=== PATIENT | female | born 1945 | race Caucasian/White ===

== ENCOUNTER 2022-04-11 08:39 | Inpatient (IN) | payer MEDICARE, BC ==
[2022-04-11 09:33] LABS: CHLORIDE,CL 101 mmol/L (98-107); SODIUM,NA 138 mmol/L (136-145)
[2022-04-11 09:38] LABS: ANION GAP 15.4 mmol/L (5-15); ESTIMATED GFR 35 mL/min (>=60)
[2022-04-11] MEDS ORDERED: Iopamidol 612 MG/ML 100 ML Bottle IVPUSH ONE (10:48)
[2022-04-11] MEDS ORDERED: Acetaminophen 325 MG Tab PO PRN ×2 (12:08→12:29)
[2022-04-11] MEDS ORDERED: Ondansetron 4 MG/2 ML SDV IV PRN ×2 (12:08→12:29)
[2022-04-11] MEDS ORDERED: Ondansetron 4 MG Tab.DIS PO PRN ×2 (12:08→12:29)
[2022-04-11] MEDS ORDERED: Rivaroxaban 10 MG Tab PO SCH ×2 (12:15→21:00)
[2022-04-11] MEDS ORDERED: Furosemide 40 MG/4 ML VIAL IV SCH (12:15)
[2022-04-11] MEDS: Furosemide 40 MG/4 ML VIAL IV SCH (13:29)
[2022-04-11] MEDS: Sodium Chloride 0.9% 10 ML Syringe FLUSH PRN ×2 (13:30→20:21)
[2022-04-11] MEDS: atorvaSTATin 40 MG Tab PO SCH (20:14)
[2022-04-11] MEDS: Apixaban 2.5 MG Tab PO SCH (21:06)
[2022-04-12] MEDS: Levothyroxine 50 MCG Tab PO SCH (06:02)
[2022-04-12] MEDS: Pantoprazole 40 MG Tab.CR PO SCH (06:02)
[2022-04-12 07:30] LABS: ANION GAP 15.1 mmol/L (5-15)
[2022-04-12] MEDS: Apixaban 2.5 MG Tab PO SCH ×2 (08:06→20:07)
[2022-04-12] MEDS: Allopurinol 100 MG Tab PO SCH (08:08)
[2022-04-12] MEDS: NIFEdipine 30 MG Tab.ER PO SCH (08:08)
[2022-04-12] MEDS: Calcium Carbonate/Vitamin D3 1250 MG-5 MCG Tab PO SCH (08:08)
[2022-04-12] MEDS: Furosemide 40 MG/4 ML VIAL IV SCH (08:09)
[2022-04-12] MEDS: Sodium Chloride 0.9% 10 ML Syringe FLUSH PRN ×2 (08:14→20:41)
[2022-04-12] MEDS ORDERED: Clopidogrel 75 MG Tab PO SCH (09:00)
[2022-04-12] MEDS ORDERED: Aspirin 81 MG Tab.Chew PO SCH (09:00)
[2022-04-12] MEDS ORDERED: [UNRECOGNIZED DRUG - REMARK] SCH (13:30)
[2022-04-12] MEDS: atorvaSTATin 40 MG Tab PO SCH (20:05)
[2022-04-13] MEDS: Levothyroxine 50 MCG Tab PO SCH (06:00)
[2022-04-13] MEDS: Pantoprazole 40 MG Tab.CR PO SCH (06:00)
[2022-04-13] MEDS: Allopurinol 100 MG Tab PO SCH (08:15)
[2022-04-13] MEDS: Apixaban 2.5 MG Tab PO SCH (08:15)
[2022-04-13] MEDS: NIFEdipine 30 MG Tab.ER PO SCH (08:15)
[2022-04-13] MEDS: Calcium Carbonate/Vitamin D3 1250 MG-5 MCG Tab PO SCH (08:15)
[2022-04-13] MEDS: Furosemide 40 MG/4 ML VIAL IV SCH (08:17)
[2022-04-13] MEDS ORDERED: Clopidogrel 75 MG Tab PO SCH (09:00)
[2022-04-18] MEDS ORDERED: Apixaban 2.5 MG Tab PO SCH (21:00)
== END 2022-04-13 17:15 | disposition home or self-care (01) | DRG 299 ==
LOC: VM.ED 08:39 → VM.MS 10:18 → OBSVTOIN 12:07
PROVIDERS: ADMIT Physician Assistant Medical; ATTEND Internal Medicine
DX: T81.718A Complication of other artery following a procedure, not elsewhere classified, initial encounter (principal); I50.23 Acute on chronic systolic (congestive) heart failure; J96.01 Acute respiratory failure with hypoxia; I26.99 Other pulmonary embolism without acute cor pulmonale; I13.0 Hypertensive heart and chronic kidney disease with heart failure and stage 1 through stage 4 chronic kidney disease, or unspecified chronic kidney disease; G47.30 Sleep apnea, unspecified; K57.90 Diverticulosis of intestine, part unspecified, without perforation or abscess without bleeding; I26.94 Multiple subsegmental thrombotic pulmonary emboli without acute cor pulmonale; N18.9 Chronic kidney disease, unspecified; G47.33 Obstructive sleep apnea (adult) (pediatric); J44.9 Chronic obstructive pulmonary disease, unspecified; I73.9 Peripheral vascular disease, unspecified; E66.9 Obesity, unspecified; M10.9 Gout, unspecified; E03.9 Hypothyroidism, unspecified; Z88.8 Allergy status to other drugs, medicaments and biological substances; Z79.82 Long term (current) use of aspirin; Z79.890 Hormone replacement therapy; Z79.899 Other long term (current) drug therapy; Z87.891 Personal history of nicotine dependence; Z68.33 Body mass index [BMI] 33.0-33.9, adult; Z79.02 Long term (current) use of antithrombotics/antiplatelets; Z86.16 Personal history of COVID-19; Z87.01 Personal history of pneumonia (recurrent)
CPT/HCPCS: 36415; 71046; 71275; 80048; 80053; 83880; 84484; 85025; 85379; 86140; 93010; 94760; 97161-GP; 99223; 99285; A9270-GY; J1940; J3490

== ENCOUNTER 2022-10-17 10:11 | Emergency (ER) | payer MEDICARE, BC ==
[2022-10-17 11:21] LABS: CORONAVIRUS COVID-19 NAA NEGATIVE (NEGATIVE)
[2022-10-17 11:35] LABS: ANION GAP 11.4 mmol/L (5-15)
== END 2022-10-17 13:00 | disposition short-term general hospital (02) ==
LOC: VM.ED 10:11
DX: R06.02 Shortness of breath (principal); R79.89 Other specified abnormal findings of blood chemistry; I13.0 Hypertensive heart and chronic kidney disease with heart failure and stage 1 through stage 4 chronic kidney disease, or unspecified chronic kidney disease; N18.9 Chronic kidney disease, unspecified; I50.9 Heart failure, unspecified; J44.9 Chronic obstructive pulmonary disease, unspecified; M10.9 Gout, unspecified; E03.9 Hypothyroidism, unspecified; E66.9 Obesity, unspecified; Z88.8 Allergy status to other drugs, medicaments and biological substances; Z79.01 Long term (current) use of anticoagulants; Z79.899 Other long term (current) drug therapy; Z79.02 Long term (current) use of antithrombotics/antiplatelets; Z87.891 Personal history of nicotine dependence; Z20.822 Contact with and (suspected) exposure to COVID-19; Z68.32 Body mass index [BMI] 32.0-32.9, adult
CPT/HCPCS: 0240U; 36415; 71046; 80053; 82550; 83615; 83880; 84484; 85025; 85379; 86140; 93005; 93010; 99284; 99285

== ENCOUNTER 2024-02-05 10:07 | Emergency (ER) | payer MEDICARE, BC ==
[2024-02-05 10:26] LABS: BASOPHILS PERCENT AUTO 0.2 % (0.2-1.2); EOSINOPHILS ABSOLUTE AUTO 0.2 x10^3/uL (0.0-0.5); EOSINOPHILS PERCENT AUTO 1.6 % (0.0-4.0); HEMATOCRIT 38.4 % (33.0-47.0); HEMOGLOBIN 12.7 g/dL (12.0-16.0); IMMATURE GRAN ABSOLUTE AUTO 0.05 x10^3/uL (0.00-0.07); LYMPHOCYTES PERCENT AUTO 20.5 % (25.0-50.0); MEAN CORPUSCULAR HGB CONC 33.1 g/dL (32.0-36.0); MEAN CORPUSCULAR VOLUME 90.8 fL (78.0-93.0); MONOCYTES ABSOLUTE AUTO 0.6 x10^3/uL (0.0-0.8); MONOCYTES PERCENT AUTO 5.9 % (2.0-11.0); NEUTROPHILS ABSOLUTE AUTO 7.1 x10^3/uL (1.8-7.7); NEUTROPHILS PERCENT AUTO 71.3 % (50.0-80.0); PLATELET COUNT,PLT 156 x10^3/uL (130-400); RED BLOOD CELL COUNT 4.23 x10^6/uL (4.00-5.50); WHITE BLOOD CELL COUNT,WBC 9.9 x10^3/uL (4.0-10.0)
[2024-02-05 11:02] LABS: A/G RATIO 0.84; ALANINE AMINOTRANSFERASE,ALT 9 U/L (14-59); ALBUMIN 3.7 g/dL (3.4-5.0); ALKALINE PHOSPHATASE 93 U/L (46-116); ASPARTATE AMNIOTRANSFERASE,AST 14 U/L (15-37); BILIRUBIN TOTAL 0.6 mg/dL (0.2-1.0); CARBON DIOXIDE,CO2 24 mmol/L (21-32); CHLORIDE,CL 105 mmol/L (98-107); GLUCOSE RANDOM 152 mg/dL (70-99); POTASSIUM,K 4.9 mmol/L (3.5-5.1); PRO B-TYPE NATRIUR PEPT,BNPPRO 1889 pg/mL (<=450); PROTEIN TOTAL,TP 8.1 g/dL (6.4-8.2); SODIUM,NA 142 mmol/L (136-145)
[2024-02-05 11:03] LABS: ANION GAP 17.9 mmol/L (5-15)
[2024-02-05 11:04] LABS: BLOOD UREA NITROGEN,BUN 93 mg/dL (7-18); CREATININE 4.2 mg/dL (0.55-1.02); ESTIMATED GFR 10 mL/min (>=60)
[2024-02-05] MEDS: Albuterol 0.083% 2.5 MG/3 ML Neb Soln NEB ONE (11:57)
[2024-02-05] MEDS: Take Home: Albuterol 18 GM Inhaler, 1 Inhaler Pack INH PRN (12:13)
== END 2024-02-05 12:15 | disposition home or self-care (01) ==
LOC: VM.ED 10:07
DX: I13.0 Hypertensive heart and chronic kidney disease with heart failure and stage 1 through stage 4 chronic kidney disease, or unspecified chronic kidney disease (principal); N18.9 Chronic kidney disease, unspecified; I50.9 Heart failure, unspecified; J44.9 Chronic obstructive pulmonary disease, unspecified; E03.9 Hypothyroidism, unspecified; Z88.8 Allergy status to other drugs, medicaments and biological substances; Z79.899 Other long term (current) drug therapy; Z79.01 Long term (current) use of anticoagulants
CPT/HCPCS: 36415; 71045; 80053; 83880; 84484; 85025; 93005; 94640; 99285; A9270; J7613-GY

== ENCOUNTER 2024-02-06 16:27 | Inpatient (IN) | payer MEDICARE, BC ==
[2024-02-06] MEDS: Acetaminophen 500 MG Tab PO ONE (16:42)
[2024-02-06 17:06] LABS: BASOPHILS PERCENT AUTO 0.2 % (0.2-1.2); EOSINOPHILS ABSOLUTE AUTO 0.2 x10^3/uL (0.0-0.5); EOSINOPHILS PERCENT AUTO 1.9 % (0.0-4.0); HEMATOCRIT 35.5 % (33.0-47.0); HEMOGLOBIN 11.7 g/dL (12.0-16.0); IMMATURE GRAN ABSOLUTE AUTO 0.07 x10^3/uL (0.00-0.07); LYMPHOCYTES ABSOLUTE AUTO 2.3 x10^3/uL (1.0-4.8); LYMPHOCYTES PERCENT AUTO 20.7 % (25.0-50.0); MEAN CORPUSCULAR HEMOGLOBIN 30.1 pg (26.0-32.0); MEAN CORPUSCULAR VOLUME 91.3 fL (78.0-93.0); MONOCYTES ABSOLUTE AUTO 1.1 x10^3/uL (0.0-0.8); MONOCYTES PERCENT AUTO 10.1 % (2.0-11.0); NEUTROPHILS ABSOLUTE AUTO 7.3 x10^3/uL (1.8-7.7); NEUTROPHILS PERCENT AUTO 66.5 % (50.0-80.0); PLATELET COUNT,PLT 151 x10^3/uL (130-400); RED BLOOD CELL COUNT 3.89 x10^6/uL (4.00-5.50)
[2024-02-06 17:21] LABS: APPEARANCE,URINE SLIGHTLY CLOUDY (CLEAR); BILIRUBIN,URINE NEGATIVE (NEGATIVE); COLOR,URINE YELLOW (YELLOW); GLUCOSE,URINE NEGATIVE (NEGATIVE); KETONES,URINE NEGATIVE (NEGATIVE); LEUKOCYTE ESTERASE,URINE MODERATE (NEGATIVE); NITRITE,URINE NEGATIVE (NEGATIVE); OCCULT BLOOD,URINE MODERATE (NEGATIVE); PH,URINE 5.5 (5.0-8.0); PROTEIN,URINE TRACE mg/dL (NEGATIVE); UROBILINOGEN,URINE 0.2 EU/dL (0.2)
[2024-02-06 17:27] LABS: A/G RATIO 0.68; ALANINE AMINOTRANSFERASE,ALT 11 U/L (14-59); ALBUMIN 3.2 g/dL (3.4-5.0); ALKALINE PHOSPHATASE 84 U/L (46-116); ASPARTATE AMNIOTRANSFERASE,AST 19 U/L (15-37); BILIRUBIN TOTAL 0.4 mg/dL (0.2-1.0); CALCIUM 8.8 mg/dL (8.5-10.1); CARBON DIOXIDE,CO2 25 mmol/L (21-32); CHLORIDE,CL 106 mmol/L (98-107); GLUCOSE RANDOM 122 mg/dL (70-99); POTASSIUM,K 4.8 mmol/L (3.5-5.1); PRO B-TYPE NATRIUR PEPT,BNPPRO 2914 pg/mL (<=450); PROTEIN TOTAL,TP 7.9 g/dL (6.4-8.2); SODIUM,NA 143 mmol/L (136-145)
[2024-02-06 17:27] LABS: BACTERIA,URINE FEW /HPF (NOT SEEN); MUCUS,URINE FEW /LPF (NOT SEEN); SQUAMOUS EPITHELIAL CELLS,UR MODERATE /HPF (NOT SEEN); WBC,URINE 20-30 /HPF (NOT SEEN)
[2024-02-06 17:29] LABS: ANION GAP 16.8 mmol/L (5-15); ESTIMATED GFR 10 mL/min (>=60)
[2024-02-06 17:30] LABS: BLOOD UREA NITROGEN,BUN 91 mg/dL (7-18); CREATININE 4.3 mg/dL (0.55-1.02)
[2024-02-06 17:43] LABS: CORONAVIRUS COVID-19 NAA NEGATIVE (NEGATIVE); INFLUENZA A NAA NEGATIVE (NEGATIVE); INFLUENZA B NAA NEGATIVE (NEGATIVE); RESPIRATORY SYNCYTIAL VIR NAA NEGATIVE (NEGATIVE)
[2024-02-06] MEDS ORDERED: Apixaban 2.5 MG Tab PO SCH (19:21)
[2024-02-06 19:56] LABS: C-REACTIVE PROTEIN 3.12 mg/dL (<=0.50)
[2024-02-06 20:00] LABS: LACTIC ACID 0.9 mmol/L (0.4-2.0)
[2024-02-06] MEDS: Sodium Chloride 0.9% 1,000 ML IV SCH (20:00)
[2024-02-06] MEDS: atorvaSTATin 40 MG Tab PO SCH (20:08)
[2024-02-06] MEDS: cefTRIAXone 1 GM Vial IVPUSH SCH (20:09)
[2024-02-06] MEDS: Apixaban 2.5 MG Tab PO SCH (20:09)
[2024-02-07] MEDS: Levothyroxine 75 MCG Tab PO SCH (06:20)
[2024-02-07 06:48] LABS: BASOPHILS PERCENT AUTO 0.2 % (0.2-1.2); EOSINOPHILS ABSOLUTE AUTO 0.2 x10^3/uL (0.0-0.5); EOSINOPHILS PERCENT AUTO 1.9 % (0.0-4.0); HEMATOCRIT 35.5 % (33.0-47.0); HEMOGLOBIN 11.7 g/dL (12.0-16.0); IMMATURE GRAN ABSOLUTE AUTO 0.09 x10^3/uL (0.00-0.07); LYMPHOCYTES ABSOLUTE AUTO 2.7 x10^3/uL (1.0-4.8); LYMPHOCYTES PERCENT AUTO 22.4 % (25.0-50.0); MEAN CORPUSCULAR HEMOGLOBIN 30.2 pg (26.0-32.0); MEAN CORPUSCULAR VOLUME 91.7 fL (78.0-93.0); MONOCYTES ABSOLUTE AUTO 1.1 x10^3/uL (0.0-0.8); NEUTROPHILS ABSOLUTE AUTO 7.8 x10^3/uL (1.8-7.7); NEUTROPHILS PERCENT AUTO 65.7 % (50.0-80.0); PLATELET COUNT,PLT 149 x10^3/uL (130-400); RED BLOOD CELL COUNT 3.87 x10^6/uL (4.00-5.50); WHITE BLOOD CELL COUNT,WBC 11.9 x10^3/uL (4.0-10.0)
[2024-02-07] MEDS ORDERED: Albuterol/Ipratropium 3.0-0.5 MG/3 ML Neb Soln NEB PRN (08:19)
[2024-02-07 08:29] LABS: ANION GAP 16.8 mmol/L (5-15); CALCIUM 8.6 mg/dL (8.5-10.1); EST CRCL DRUG DOSING (CG) 10.5 mL/min; POTASSIUM,K 4.8 mmol/L (3.5-5.1)
[2024-02-07] MEDS: NIFEdipine 30 MG Tab.ER PO SCH (08:30)
[2024-02-07] MEDS: Cholecalciferol (Vitamin D3) 25 MCG Tab PO SCH (08:31)
[2024-02-07] MEDS: Tiotropium Bromide 4 GM Inhalation Spray (2.5mcg/1 dose; 10 doses) INH SCH (08:37)
[2024-02-07] MEDS ORDERED: Torsemide 20 MG Tab PO SCH ×2 (09:00→12:00)
[2024-02-07] MEDS ORDERED: Allopurinol 100 MG Tab PO SCH (09:00)
[2024-02-07] MEDS: Arformoterol 15 MCG/2 ML Neb Soln NEB SCH (09:25)
[2024-02-07] MEDS: Doxycycline Monohydrate 100 MG Cap PO SCH (09:46)
[2024-02-07] MEDS: methylPREDNISolone Sodium Succinate 40 MG/1 ML SDV IVPUSH SCH (09:47)
[2024-02-07] MEDS: Albuterol/Ipratropium 3.0-0.5 MG/3 ML Neb Soln NEB SCH (15:01)
[2024-02-07] MEDS: Acetaminophen 325 MG Tab PO PRN (15:05)
[2024-02-07] MEDS: Furosemide 40 MG/4 ML VIAL IV ONE (17:24)
[2024-02-07] MEDS: Sodium Chloride 0.9% 10 ML Syringe FLUSH PRN (17:27)
[2024-02-08 06:45] LABS: BASOPHILS PERCENT AUTO 0.1 % (0.2-1.2); HEMATOCRIT 31.6 % (33.0-47.0); HEMOGLOBIN 10.4 g/dL (12.0-16.0); IMMATURE GRAN ABSOLUTE AUTO 0.18 x10^3/uL (0.00-0.07); LYMPHOCYTES ABSOLUTE AUTO 1.9 x10^3/uL (1.0-4.8); LYMPHOCYTES PERCENT AUTO 13.8 % (25.0-50.0); MEAN CORPUSCULAR HEMOGLOBIN 30.3 pg (26.0-32.0); MEAN CORPUSCULAR HGB CONC 32.9 g/dL (32.0-36.0); MEAN CORPUSCULAR VOLUME 92.1 fL (78.0-93.0); MONOCYTES ABSOLUTE AUTO 1.2 x10^3/uL (0.0-0.8); MONOCYTES PERCENT AUTO 8.6 % (2.0-11.0); NEUTROPHILS ABSOLUTE AUTO 10.5 x10^3/uL (1.8-7.7); NEUTROPHILS PERCENT AUTO 76.2 % (50.0-80.0); PLATELET COUNT,PLT 130 x10^3/uL (130-400); RED BLOOD CELL COUNT 3.43 x10^6/uL (4.00-5.50); WHITE BLOOD CELL COUNT,WBC 13.7 x10^3/uL (4.0-10.0)
[2024-02-08 07:11] LABS: A/G RATIO 0.71; ANION GAP 16.8 mmol/L (5-15); BILIRUBIN TOTAL 0.4 mg/dL (0.2-1.0); CALCIUM 8.9 mg/dL (8.5-10.1); EST CRCL DRUG DOSING (CG) 10.5 mL/min; POTASSIUM,K 4.8 mmol/L (3.5-5.1); PROTEIN TOTAL,TP 7.2 g/dL (6.4-8.2)
[2024-02-08] MEDS: methylPREDNISolone Sodium Succinate 40 MG/1 ML SDV IVPUSH SCH (09:10)
[2024-02-08] MEDS: Calcitriol 0.25 MCG Cap PO SCH (09:10)
[2024-02-08] MEDS: Sennosides/Docusate Sodium 50-8.6 MG Tab PO SCH (09:10)
[2024-02-08] MEDS: Sodium Chloride 0.9% 1,000 ML IV SCH (09:11)
[2024-02-08] MEDS: Furosemide 40 MG/4 ML VIAL IV ONE (17:22)
[2024-02-09 06:55] LABS: BASOPHILS PERCENT AUTO 0.1 % (0.2-1.2); HEMOGLOBIN 9.9 g/dL (12.0-16.0); IMMATURE GRAN ABSOLUTE AUTO 0.25 x10^3/uL (0.00-0.07); LYMPHOCYTES ABSOLUTE AUTO 1.1 x10^3/uL (1.0-4.8); MEAN CORPUSCULAR HEMOGLOBIN 30.2 pg (26.0-32.0); MEAN CORPUSCULAR VOLUME 91.5 fL (78.0-93.0); MONOCYTES ABSOLUTE AUTO 0.5 x10^3/uL (0.0-0.8); MONOCYTES PERCENT AUTO 3.7 % (2.0-11.0); NEUTROPHILS ABSOLUTE AUTO 10.7 x10^3/uL (1.8-7.7); NEUTROPHILS PERCENT AUTO 85.2 % (50.0-80.0); PLATELET COUNT,PLT 139 x10^3/uL (130-400); RED BLOOD CELL COUNT 3.28 x10^6/uL (4.00-5.50); WHITE BLOOD CELL COUNT,WBC 12.5 x10^3/uL (4.0-10.0)
[2024-02-09 07:07] LABS: ANION GAP 19.3 mmol/L (5-15); CALCIUM 8.9 mg/dL (8.5-10.1); EST CRCL DRUG DOSING (CG) 10.77 mL/min; POTASSIUM,K 5.3 mmol/L (3.5-5.1)
[2024-02-09 07:08] LABS: CREATININE 3.9 mg/dL (0.55-1.02)
[2024-02-09] MEDS: Furosemide 100 MG/10 ML SDV IV ONE (08:36)
== END 2024-02-09 11:15 | disposition short-term general hospital (02) | DRG 871 ==
LOC: VM.ED 16:27 → VM.MS 18:40 → OBSVTOIN 19:11
PROVIDERS: ADMIT Nurse Practitioner Family; ATTEND Internal Medicine
DX: I13.0 Hypertensive heart and chronic kidney disease with heart failure and stage 1 through stage 4 chronic kidney disease, or unspecified chronic kidney disease (principal); I50.9 Heart failure, unspecified; N18.4 Chronic kidney disease, stage 4 (severe); J44.9 Chronic obstructive pulmonary disease, unspecified; A41.9 Sepsis, unspecified organism; I50.33 Acute on chronic diastolic (congestive) heart failure; N17.0 Acute kidney failure with tubular necrosis; J96.01 Acute respiratory failure with hypoxia; I13.2 Hypertensive heart and chronic kidney disease with heart failure and with stage 5 chronic kidney disease, or end stage renal disease; Z66 Do not resuscitate; J44.1 Chronic obstructive pulmonary disease with (acute) exacerbation; N18.5 Chronic kidney disease, stage 5; I27.82 Chronic pulmonary embolism; C91.10 Chronic lymphocytic leukemia of B-cell type not having achieved remission; N30.00 Acute cystitis without hematuria; M1A.00X0 Idiopathic chronic gout, unspecified site, without tophus (tophi); R65.20 Severe sepsis without septic shock; E78.5 Hyperlipidemia, unspecified; I73.9 Peripheral vascular disease, unspecified; E03.9 Hypothyroidism, unspecified; R73.03 Prediabetes; E66.9 Obesity, unspecified; G47.33 Obstructive sleep apnea (adult) (pediatric); Z68.35 Body mass index [BMI] 35.0-35.9, adult; Z79.4 Long term (current) use of insulin; Z86.711 Personal history of pulmonary embolism; Z79.01 Long term (current) use of anticoagulants; Z86.718 Personal history of other venous thrombosis and embolism; Z87.891 Personal history of nicotine dependence; Z98.51 Tubal ligation status; Z88.8 Allergy status to other drugs, medicaments and biological substances; Z90.89 Acquired absence of other organs; Z98.890 Other specified postprocedural states; Z95.820 Peripheral vascular angioplasty status with implants and grafts; Z79.1 Long term (current) use of non-steroidal anti-inflammatories (NSAID); Z79.899 Other long term (current) drug therapy
CPT/HCPCS: 0241U; 36415; 71045; 71250; 74176; 80048; 80053; 81001; 82550; 82947; 83605; 83735; 83880; 84145; 84443; 84484; 85025; 85999; 86140; 87040; 87086; 87088; 87147; 93005; 93010; 94640; 94667; 94668; 94760; 97162-GP; 97165-GO; 99223; 99284; 99285; A9270-GY; G0378; J0696; J1940; J2919; J2920; J3490; J7030; J7620-GY